=== PATIENT | female | born 1940 | race Caucasian/White ===

== ENCOUNTER 2021-09-06 06:55 | Day surgery (SDC) | payer MEDICARE ==
[~2021-09-06 06:55] MED LIST: Lactated Ringers 1,000 ML IV ONE
[2021-09-06] MEDS ORDERED: BETADINE 5% OPHTHALMIC 30 ML OP ONE (07:00)
[2021-09-06] MEDS ORDERED: cefUROXime sodium 0.005 GM in Sodium Chloride Flush 30 ML*** 0.5 ML IJ ONE (07:00)
[2021-09-06] MEDS ORDERED: Lactated Ringers 1,000 ML IV SCH ×2 (07:00)
[2021-09-06] MEDS ORDERED: TETRACAINE 0.5% STERI-UNIT SOL OP ONE ×2 (07:00)
[2021-09-06] MEDS ORDERED: NON-FORMULARY ITEM OP ONE (07:00)
[2021-09-06] MEDS ORDERED: Ak-Dilate OPHTHALMIC*** 1.065 ML, Cyclogyl 1% OPHTH SOL 1.065 ML, GATIFLOXACIN 0.5% OPH... OP ONE ×4 (07:00)
[2021-09-06] MEDS ORDERED: ACETAZOLAMIDE 250 MG TABLET PO ONE (09:00)
[2021-09-06] MEDS ORDERED: Epinephrine Preservative Free 1 MG/ML IJ ONE (09:00)
[2021-09-06] MEDS ORDERED: Zofran 4 MG/2 ML VIAL IV PRN (09:00)
[2021-09-06] MEDS ORDERED: LIDOCAINE HCL 1% 50 MG/5 ML VL PF IJ ONE (09:00)
[2021-09-06] MEDS ORDERED: DIPRIVAN 200 MG/20 ML IV ONE (09:18)
[2021-09-06] MEDS ORDERED: SUBLIMAZE 100 MCG/2 ML ONE (09:34)
[2021-09-06 10:04] VITALS: O2SAT 96
[2021-09-06 10:15] VITALS: BP 162/77; PULSE 65
== END 2021-09-06 10:20 | disposition home or self-care (01) ==
LOC: SDC 06:55
PROVIDERS: ATTEND Ophthalmology
DX: H25.812 Combined forms of age-related cataract, left eye (principal)
CPT/HCPCS: 99100; C1780; J0171; J2001; J2704; J3010; A9270-GY

== ENCOUNTER 2023-12-31 09:07 | Emergency (ER) | payer MEDICARE ==
[2023-12-31 09:17] VITALS: TEMP 97.2
[2023-12-31 09:30] LABS: Absolute Neutrophil Ct (ANC) 4.24 x10^3/uL (1.56-6.13); Basophil (Absolute #) 0.06 x10^3/uL (0.01-0.08); Eosinophil % 2.2 % (0.7-5.8); Eosinophil (Absolute #) 0.13 x10^3/uL (0.04-0.36); Hematocrit 37.3 % (34.1-44.9); Hemoglobin 12.2 g/dL (11.2-15.7); IMMATURE GRAN # 0.02 x10^3u/L (0.001-0.031); IMMATURE GRAN % 0.3 % (0.001-0.429); Lymphocytes % 16.9 % (19.3-51.7); Mean Cell Volume 87.6 fL (79.4-94.8); Mean Corpuscular Hemoglobin 28.6 pg (25.6-32.2); Mean Corpuscular Hgb Concent. 32.7 g/dL (32.2-35.5); Mean Platelet Volume 9.7 fL (9.4-12.3); Monocyte (Absolute #) 0.47 x10^3/uL (0.24-0.86); Monocytes % 7.9 % (4.7-12.5); Neutrophil % 71.7 % (34.0-71.1); Platelet Count 190 x10^3/uL (182-369); Red Blood Count 4.26 x10^6/uL (3.93-5.22); Red Cell Distribution Width 14.8 % (11.7-14.4); White Blood Count 5.9 x10^3/uL (3.98-10.04)
[2023-12-31 09:41] LABS: ALBUMIN 4.1 g/dL (3.5-5.0); ANION GAP 11.9 MEQ/L (5-15); BILIRUBIN,TOTAL 0.5 mg/dL (0.2-1.3); Calcium 9.1 mg/dL (8.4-10.2); Creatinine 1 1.02 mg/dL (0.52-1.04); EST GLOMERULAR FILTRATION RATE 53.9 ML/MIN; Potassium 4.3 mmol/L (3.5-5.1); Total Protein 6.7 g/dL (6.3-8.2)
--- NOTE | 2023-12-31 09:54 | ERPHSYRPT ---
- History of Present Illness Source: patient, family Exam Limitations: no limitations Patient Subjective Stated Complaint: Pt states "I broke out in sweats this morning and now I just feel drained." Triage Nursing Assessment: pt presented alert and oriented X3, skin pwd. PT able to speak in clear full sentences. PT resting comfortably on the bed. pt in no apparent respiratory distress. Physician History: The patient was up standing and walking around talking on the telephone. She been feeling fine. She was up for about 10 minutes and then got lightheaded. She said she felt flushed and diaphoretic. She felt like she was getting some generalized weakness and so she sat down. There was no syncope. She did not have any palpitations no shortness of breath she had no focal neurological deficits. She said she is felt weak and lightheaded. She has not had problems like this before. 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 She had a cardiac catheterization at that time which was clean. She says she feels back to normal now. She noted that her blood pressure been a little bit elevated couple times last week running in the 170 systolic that is about what it was here. She has no other complaints at this time and says she feels back to normal. Allergies/Adverse Reactions: No Known Drug Allergies Allergy (Verified 08/30/21 15:09) Home Medications: Levothyroxine Sodium [Levoxyl] 50 mcg PO DAILY 10/23/11 [History] Lisinopril 20 mg PO BID 10/23/11 [History] Pravastatin Sodium 10 mg [Pravachol 10 MG] 1 tab PO DAILY 10/23/11 [History] Acetaminophen 500 mg [Tylenol Extra Strength 500 mg] 500 mg PO DAILY PRN PRN 08/30/21 [History] Aspirin [[place]] 2 tab PO DAILY 08/30/21 [History] Carboxymethylcellulose Sodium [Thera Tears] 1 each OP DAILY PRN PRN 08/30/21 [History] Carvedilol 3.125 mg [Coreg 3.125 MG] 3.125 mg PO BID 08/30/21 [History] Cholecalciferol (Vitamin D3) [Vitamin D] 2,000 unit PO DAILY 08/30/21 [History] Magnesium Amino Acid Chelate [Magnesium] 165 mg PO BID 08/30/21 [History] Zinc 50 mg PO DAILY 08/30/21 [History] Vit C/E/Zn/Coppr/Lutein/Zeaxan [Preservision Areds 2 Softgel] 2 each PO DAILY 09/06/21 [History] Hx Tetanus, Diphtheria Vaccination/Date Given: No Hx Influenza Vaccination/Date Given: Yes Hx Pneumococcal Vaccination/Date Given: Yes Immunizations Up to Date: No Travel Risk - International Travel Have you traveled outside of the country in past 3 weeks: No - Emerging Infectious Disease Are you exhibiting symptoms associated with any current EIDs: No - Review of Systems Constitutional: No Symptoms Eyes: No Symptoms Respiratory: No Symptoms Cardiac: No Symptoms Abdominal/Gastrointestinal: No Symptoms Genitourinary Symptoms: No Symptoms Skin: No Symptoms Neurological: No Symptoms Psychological: No Symptoms All Other Systems: Reviewed and Negative - Past Medical History Pertinent Past Medical History: Yes Neurological History: No Pertinent History ENT History: Other Cardiac History: High Cholesterol, Hypertension Respiratory History: No Pertinent History Endocrine Medical History: Hypothyroidism Musculoskeletal History: Arthritis, Osteoarthritis, Osteoporosis GI Medical History: No Pertinent History History: No Pertinent History Psycho-Social History: No Pertinent History Female Reproductive Disorders: No Pertinent History Other Medical History: Hx of murmur. leaking aortic valve. " first degree heart block" - Past Surgical History Past Surgical History: Yes Neuro Surgical History: No Pertinent History Cardiac: Pacemaker Respiratory: No Pertinent History Gastrointestinal: Appendectomy Genitourinary: No Pertinent History Musculoskeletal: Orthopedic Surgery Female Surgical History: No Pertinent History Other Surgical History: hammer toe and bunnon left foot. carpal tunnel surgery right hand - Social History Smoking Status: Never smoker Exposure to second hand smoke: No Drug Use: none Patient Lives Alone: No - Social Determinants of Health Will the patient participate in the screening: Yes Do you worry about a steady place to live?: No Do you have any problems with any of the following?: No known problems In the past 12 months,have you had to go without utilities?: No Transportation Issues: No Has anyone in your support network made you feel unsafe?: No Have you or anyone in your house had to go without enough: No - Nursing Vital Signs Nursing Vital Signs: Initial Vital Signs Temperature 97.2 F 12/31/23 09:10 Pulse Rate 78 12/31/23 09:10 Respiratory Rate 20 12/31/23 09:10 Blood Pressure 154/90 12/31/23 09:10 O2 Sat by Pulse Oximetry 97 12/31/23 09:10 Pain Scale Pain Intensity 0 - Physical Exam General Appearance: no apparent distress Eye Exam: PERRL/EOMI Respiratory Exam: normal breath sounds, lungs clear, No respiratory distress Cardiovascular Exam: regular rate/rhythm Gastrointestinal/Abdomen Exam: soft, normal bowel sounds, No tenderness, No distention Pelvic Exam: not done Rectal Exam: deferred Neurologic Exam: alert, oriented x 3, cooperative, traffic control specialist II-XII nml as tested, normal mood/affect, nml cerebellar function, nml station & gait, sensation nml, No motor deficits, No sensory deficit, No confusion Skin Exam: normal color, warm, dry SpO2: 98 - Course Nursing assessment & vital signs reviewed: Yes Ordered Tests: Active Orders 24 hr Category Date Time Status Coal Screener STAT Care 12/31/23 09:13 Active EKG-ER Only STAT Care 12/31/23 09:13 Active IV Insertion STAT Care 12/31/23 09:13 Active CAROTID BILATERAL [US] Stat Exams 12/31/23 09:38 Completed CHEST 1 VIEW (PORTABLE) Stat Exams 12/31/23 09:13 Completed CBC W DIFF Stat Lab 12/31/23 09:20 Completed CMP Stat Lab 12/31/23 09:20 Completed TROPONIN Q4H Lab 12/31/23 09:20 Completed TROPONIN Q4H Lab 12/31/23 13:15 Ordered TROPONIN Q4H Lab 12/31/23 17:15 Ordered Laboratory Results - last 24 hr 12/31/23 12/31/23 12/31/23 09:20 09:20 09:20 WBC 5.9 RBC 4.26 Hgb 12.2 Hct 37.3 MCV 87.6 MCH 28.6 MCHC 32.7 RDW 14.8 H Plt Count 190 MPV 9.7 Gran % 71.7 H Immature Gran % (Auto) 0.3 Nucleat RBC Rel Count 0.0 Eos # (Auto) 0.13 Immature Gran # (Auto) 0.02 Absolute Lymphs (auto) 1.00 L Absolute Monos (auto) 0.47 Absolute Nucleated RBC 0.00 Lymphocytes % 16.9 L Monocytes % 7.9 Eosinophils % 2.2 Basophils % 1.0 Absolute Granulocytes 4.24 Basophils # 0.06 Sodium 130 L Potassium 4.3 Chloride 97 L Carbon Dioxide 26 Anion Gap 11.9 BUN 23 H Creatinine 1.02 Estimated GFR 53.9 Glucose 117 H Calcium 9.1 Total Bilirubin 0.50 AST 24 ALT 16 Alkaline Phosphatase 53 Troponin I < 0.012 Serum Total Protein 6.7 Albumin 4.1 Influenza Type A Ag Influenza Type B Ag RSV (PCR) SARS-CoV-2 (PCR) 12/31/23 09:22 WBC RBC Hgb Hct MCV MCH MCHC RDW Plt Count MPV Gran % Immature Gran % (Auto) Nucleat RBC Rel Count Eos # (Auto) Immature Gran # (Auto) Absolute Lymphs (auto) Absolute Monos (auto) Absolute Nucleated RBC Lymphocytes % Monocytes % Eosinophils % Basophils % Absolute Granulocytes Basophils # Sodium Potassium Chloride Carbon Dioxide Anion Gap BUN Creatinine Estimated GFR Glucose Calcium Total Bilirubin AST ALT Alkaline Phosphatase Troponin I Serum Total Protein Albumin Influenza Type A Ag NEGATIVE Influenza Type B Ag NEGATIVE RSV (PCR) NEGATIVE SARS-CoV-2 (PCR) NEGATIVE Patient was stable throughout stay. She was asymptomatic her vital signs were good. There is no ectopy or rhythm disturbances on her monitor. I went ahead and got a carotid ultrasound that showed no significant flow impedance. After talking the patient more she may have just been standing too long maybe with her legs locked in had some blood flow issues to her head. On the differential was arrhythmia, carotid artery stenosis, AMI. I think that this was a benign presyncopal episode. I do not think that she needs further workup at this time. I did instruct her that if it recurs to return for further evaluation Lab/Rad Data: Laboratory Result Diagrams 12/31/23 09:20 12/31/23 09:20 Laboratory Results 12/31/23 12/31/23 12/31/23 Range/Units 09:22 09:20 09:20 WBC (3.98-10.04) x10^3/uL RBC (3.93-5.22) x10^6/uL Hgb (11.2-15.7) g/dL Hct (34.1-44.9) % MCV (79.4-94.8) fL MCH (25.6-32.2) pg MCHC (32.2-35.5) g/dL RDW (11.7-14.4) % Plt Count (182-369) x10^3/uL MPV (9.4-12.3) fL Gran % (34.0-71.1) % Immature Gran % (Auto) (0.001-0.429) % Nucleat RBC Rel Count (0.00-0.2) % Eos # (Auto) (0.04-0.36) x10^3/uL Immature Gran # (Auto) (0.001-0.031) x10^3u/L Absolute Lymphs (auto) (1.18-3.74) x10^3/uL Absolute Monos (auto) (0.24-0.86) x10^3/uL Absolute Nucleated RBC (0.00-0.012) x10^3u/L Lymphocytes % (19.3-51.7) % Monocytes % (4.7-12.5) % Eosinophils % (0.7-5.8) % Basophils % (0.1-1.2) % Absolute Granulocytes (1.56-6.13) x10^3/uL Basophils # (0.01-0.08) x10^3/uL Sodium 130 L (135-145) mmol/L Potassium 4.3 (3.5-5.1) mmol/L Chloride 97 L (98-107) mmol/L Carbon Dioxide 26 (22-30) mmol/L Anion Gap 11.9 (5-15) MEQ/L BUN 23 H (7-17) mg/dL Creatinine 1.02 (0.52-1.04) mg/dL Estimated GFR 53.9 ML/MIN Glucose 117 H (74-106) mg/dL Calcium 9.1 (8.4-10.2) mg/dL Total Bilirubin 0.50 (0.2-1.3) mg/dL AST 24 (14-36) U/L ALT 16 (0-35) U/L Alkaline Phosphatase 53 (38-126) U/L Troponin I < 0.012 (0.000-0.033) ng/mL Serum Total Protein 6.7 (6.3-8.2) g/dL Albumin 4.1 (3.5-5.0) g/dL Influenza Type A Ag NEGATIVE (NEGATIVE) Influenza Type B Ag NEGATIVE (NEGATIVE) RSV (PCR) NEGATIVE (NEGATIVE) SARS-CoV-2 (PCR) NEGATIVE (NEGATIVE) 12/31/23 Range/Units 09:20 WBC 5.9 (3.98-10.04) x10^3/uL RBC 4.26 (3.93-5.22) x10^6/uL Hgb 12.2 (11.2-15.7) g/dL Hct 37.3 (34.1-44.9) % MCV 87.6 (79.4-94.8) fL MCH 28.6 (25.6-32.2) pg MCHC 32.7 (32.2-35.5) g/dL RDW 14.8 H (11.7-14.4) % Plt Count 190 (182-369) x10^3/uL MPV 9.7 (9.4-12.3) fL Gran % 71.7 H (34.0-71.1) % Immature Gran % (Auto) 0.3 (0.001-0.429) % Nucleat RBC Rel Count 0.0 (0.00-0.2) % Eos # (Auto) 0.13 (0.04-0.36) x10^3/uL Immature Gran # (Auto) 0.02 (0.001-0.031) x10^3u/L Absolute Lymphs (auto) 1.00 L (1.18-3.74) x10^3/uL Absolute Monos (auto) 0.47 (0.24-0.86) x10^3/uL Absolute Nucleated RBC 0.00 (0.00-0.012) x10^3u/L Lymphocytes % 16.9 L (19.3-51.7) % Monocytes % 7.9 (4.7-12.5) % Eosinophils % 2.2 (0.7-5.8) % Basophils % 1.0 (0.1-1.2) % Absolute Granulocytes 4.24 (1.56-6.13) x10^3/uL Basophils # 0.06 (0.01-0.08) x10^3/uL Sodium (135-145) mmol/L Potassium (3.5-5.1) mmol/L Chloride (98-107) mmol/L Carbon Dioxide (22-30) mmol/L Anion Gap (5-15) MEQ/L BUN (7-17) mg/dL Creatinine (0.52-1.04) mg/dL Estimated GFR ML/MIN Glucose (74-106) mg/dL Calcium (8.4-10.2) mg/dL Total Bilirubin (0.2-1.3) mg/dL AST (14-36) U/L ALT (0-35) U/L Alkaline Phosphatase (38-126) U/L Troponin I (0.000-0.033) ng/mL Serum Total Protein (6.3-8.2) g/dL Albumin (3.5-5.0) g/dL Influenza Type A Ag (NEGATIVE) Influenza Type B Ag (NEGATIVE) RSV (PCR) (NEGATIVE) SARS-CoV-2 (PCR) (NEGATIVE) - Progress Progress: improved Medical Desision Making - Independent Historian Additional History obtained from: Child - Diagnostic Testing Diagnostic test were ordered, analyzed, and reviewed by me: Yes Radiological Interpretation: Reviewed by me - Risk of complications Minimal Risk: Minimal risk of morbidity - Departure Departure Disposition: Home Clinical Impression: Postural dizziness with near syncope Condition: Stable Critical Care Time: No Referrals: MAURI BERMUDEZ NP [Primary Care Provider] - Follow up/PCP as directed Instructions: Near Fainting (DC) Additional Instructions: Return if symptoms worsen or recur.
--- NOTE | 2023-12-31 09:55 | XRAY ---
Indication: Chest pain. Comparison: November 21, 2014 Portable chest again demonstrates COPD and hilar/right lung calcified granulomas. Heart not enlarged with new stent and left dual-lead pacemaker. Bony thorax intact again with osteopenia, degenerative changes, and double curvature scoliosis. Impression: Continued nonacute chest with chronic features.
[2023-12-31 10:20] LABS: INFLUENZA A NEGATIVE (NEGATIVE); INFLUENZA B NEGATIVE (NEGATIVE); RESPIRATORY SYNCTIAL VIRUS NEGATIVE (NEGATIVE); SARS-CoV-2 Xpert Express NEGATIVE (NEGATIVE)
--- NOTE | 2023-12-31 10:30 | XRAY ---
Indication: Near syncope. Two-dimensional sonogram and color Doppler imaging carotid arteries of the neck performed. Comparison: January 18, 2017 Examination right carotid circulation again demonstrates widely patent common carotid artery. Progressive worsening moderate calcified plaquing at the level of the bulb again extending into the origin internal carotid and external carotid arteries. PSV CCA is 48 cm/s. PSV ICA is 76 cm/s. ICA/CCA ratio is 1.6. Normal antegrade vertebral artery flow. Examination left carotid circulation now demonstrates minimal scattered common carotid calcified plaquing. Carotid bulb demonstrates progressive worsening moderate calcified plaquing again extending into the origin of the internal carotid and now external carotid arteries. PSV CCA is 69 cm/s. PSV ICA is 55 cm/s. ICA/CCA ratio is 0.8. Normal antegrade vertebral artery flow. Impression: Progressive worsening bilateral arteriosclerotic disease as detailed. Velocity measurements and ratios remain negative for hemodynamically significant flow limiting stenosis.
[2023-12-31 10:51] VITALS: O2SAT 98
[2023-12-31 10:57] VITALS: RESP 17
[2023-12-31 11:08] VITALS: BP 165/131; PULSE 68
== END 2023-12-31 11:08 | disposition home or self-care (01) ==
LOC: ED 09:07
DX: R42 Dizziness and giddiness (principal); R55 Syncope and collapse; E78.5 Hyperlipidemia, unspecified; I10 Essential (primary) hypertension; Z79.899 Other long term (current) drug therapy
CPT/HCPCS: 0241U; 36000; 36415; 71045; 80053; 84484; 85025; 93005; 93041; 93880; 99284